=== PATIENT | female | born 1965 | race Two or more races ===

== ENCOUNTER 2021-09-24 18:29 | Emergency (ER) | payer BC ==
[2021-09-24 19:06] VITALS: RESP 18; TEMP 98.1
--- NOTE | 2021-09-24 19:11 | ED ---
Lower Extremity Injury HPI - General Chief Complaint: Extremity Injury, Lower Stated Complaint: ankle injury Time Seen by Provider: 09/24/21 19:02 Source: patient, RN notes reviewed Mode of arrival: wheelchair Limitations: physical limitation - History of Present Illness Initial Comments: 56-year-old pleasant female presents to emergency department after twisting her ankle when she was running. Patient complaining of sharp pain to the lateral aspect of the right ankle. Patient was able to bear weight after the injury. Denies any radiation of pain. Exacerbated by weightbearing, movement, palpation. Alleviated by rest. No other injuries No headache, no fever or chills, no changes in vision or hearing, no sore throat or difficulty with speech, no neck pain, no chest pain or shortness of breath, no abdominal pain, no nausea or vomiting, no changes in urination or bowel movements, no numbness or tingling, no skin rashes or lesions. Past medical, surgical, social, and family history reviewed. Review of Systems ROS Statement: Those systems with pertinent positive or pertinent negative responses have been documented in the HPI. ROS Other: All systems not noted in ROS Statement are negative. Past Medical History Past Medical History: Cancer Additional Past Medical History / Comment(s): skin History of Any Multi-Drug Resistant Organisms: None Reported Additional Past Surgical History / Comment(s): skin cancer, thyroid Past Psychological History: No Psychological Hx Reported Smoking Status: Never smoker Past Alcohol Use History: Occasional Past Drug Use History: None Reported General Exam Limitations: physical limitation General appearance: alert, in no apparent distress Head exam: Present: atraumatic, normocephalic, normal inspection Eye exam: Present: normal appearance, PERRL, EOMI. Absent: scleral icterus, conjunctival injection, periorbital swelling ENT exam: Present: normal exam, mucous membranes moist Neck exam: Present: normal inspection, full ROM Respiratory exam: Present: normal lung sounds bilaterally. Absent: respiratory distress, wheezes, rales, rhonchi, stridor Cardiovascular Exam: Present: regular rate, normal rhythm, normal heart sounds. Absent: systolic murmur, diastolic murmur, rubs, gallop, clicks GI/Abdominal exam: Present: soft. Absent: tenderness Extremities exam: Present: full ROM, tenderness (Tender over the ATF ligament area on the lateral aspect of the right ankle. No break in skin integrity. No crepitus, no other areas of tenderness), normal capillary refill. Absent: normal inspection, pedal edema, joint swelling, calf tenderness Back exam: Present: normal inspection Neurological exam: Present: alert, oriented X3, CN II-XII intact Psychiatric exam: Present: normal affect, normal mood Skin exam: Present: warm, dry, intact, normal color. Absent: rash Course Vital Signs 09/24/21 19:01 Temperature 98.1 F Pulse Rate 79 Respiratory 18 Rate Blood Pressure 136/81 O2 Sat by Pulse 100 Oximetry Procedures - Orthopedic Splinting/Casting Injury #1 Side: right Lower Extremity Immobilizer: stirrup splint (Distal neurovascular status intact both pre-and post-application) Medical Decision Making - Medical Decision Making Isolated right ankle injury. Most consistent with ankle sprain. We'll order plain film x-rays to rule out fracture Patient was told to return to the ER for any signs or symptoms worsen. Told to return immediately if any other problems arise. All questions answered. Treatment plan discussed. Patient in agreement Every effort has been made to ensure accuracy of this dictation. However, due to the limitations of electronic medical records and dictation devices, errors in charting still occur. X-ray read as negative by radiology. However I did review the films myself. I believe there is a tiny avulsion fracture to the distal fibula. [employer] Dr. Wu Disposition Clinical Impression: Sprain of anterior talofibular ligament of right ankle Disposition: HOME SELF-CARE Condition: Good Instructions (If sedation given, give patient instructions): Ankle Sprain (ED), Ankle Fracture (ED) Additional Instructions: With the splint as directed until follow-up with orthopedics. Apply ice 20 minutes on and off. Minimal weightbearing until cleared by orthopedics. Follow-up with orthopedics as directed. Return to the ER immediately if any symptoms worsen, new symptoms arise, or any other problems develop. Is patient prescribed a controlled substance at d/c from ED?: No Referrals: Grant Huerta MD [STAFF PHYSICIAN] - 10/01/21 Time of Disposition: 19:34
--- NOTE | 2021-09-24 19:22 | XR ---
EXAMINATION TYPE: XR ankle complete RT DATE OF EXAM: 09/24/2021 7:15 PM INDICATION: Patient age:Female; 56 years old; Reason for study: Right ankle injury/pain; COMPARISON: None TECHNIQUE: The right ankle is imaged in frontal lateral and oblique projections. FINDINGS: There is no evidence of acute osseous pathology. The joint spaces are well-preserved without evidenc e of subluxation or dislocation. Kager's fat pad is intact. Mild soft tissue swelling around the late ral ankle. No radiopaque foreign bodies are identified. IMPRESSION: 1. No evidence of acute fracture. 2. Subcutaneous swelling around the lateral ankle likely secondary to underlying soft tissue injury.
[2021-09-24 19:56] VITALS: BP 123/88; PULSE 72
== END 2021-09-24 19:54 | disposition home or self-care (01) ==
LOC: EC 18:29
DX: S93.491A Sprain of other ligament of right ankle, initial encounter (principal); X50.1XXA Overexertion from prolonged static or awkward postures, initial encounter; Y93.02 Activity, running
CPT/HCPCS: 29515; 99283